=== PATIENT | male | born 1990 | race Caucasian/White ===

== ENCOUNTER 2020-11-02 06:22 | Emergency (ER) | payer SELFPAY ==
[2020-11-02] MEDS ORDERED: Fluorescein 1 MG Ophth Strip EYEBOTH ONE (06:38)
--- NOTE | 2020-11-02 06:38 | EDM.PDOC ---
<BennierosemarthaEmmanuel A - Last Filed: 11/02/20 07:55> ED HPI GENERAL MEDICAL PROBLEM - General Chief Complaint: Eye Problems Stated Complaint: METHANOL BLEW IN EYES Time Seen by Provider: 11/02/20 07:00 Source of Information: Reports: Patient History Limitations: Reports: No Limitations - Related Data Allergies Allergy/AdvReac Type Severity Reaction Status Date / Time No Known Allergies Allergy Verified 11/02/20 06:41 Home Meds: Home Meds . [No Known Home Meds] 11/02/20 [History] ED ROS GENERAL - Review of Systems Review Of Systems: Comprehensive ROS is negative, except as noted in HPI. ED EXAM GENERAL W FULL EYE - Physical Exam Exam: See Below Exam Limited By: No Limitations General Appearance: Alert, WD/WN, No Apparent Distress Eye Exam: Bilateral Eye: EOMI, PERRL Conjunctiva & Sclera: Bilateral: Injected, Scleral Icterus Throat/Mouth: Normal Voice, No Airway Compromise Head: Atraumatic, Normocephalic Neck: Normal Inspection Respiratory/Chest: No Respiratory Distress, No Accessory Muscle Use Cardiovascular: Normal Peripheral Pulses Extremities: Normal Inspection Neurological: Alert, Normal Gait Psychiatric: Normal Affect, Normal Mood Skin Exam: Warm, Dry, Intact, Normal Color Comments: On fluorescein exam patient is noted to have a large corneal abrasion overlying the left pupil and cornea. He has conjunctival erythema and irritation in bilateral eyes with watery discharge Course - Re-Assessments/Exams Free Text/Narrative Re-Assessment/Exam: 11/02/20 07:32 On fluorescein stain, large corneal abrasion overlying L pupil/corneal. Right eye appears ok. Normal EOMI. PERRLA. I'm having patient rinse his eyes again x15-min after tetracaine application, and I will arrange for f/u in ophthalmology office this morning. 11/02/20 07:[address] Marshall ophthalmology his nurse who states that he will be able to see patient around 2 PM this afternoon. He is unfortunately in surgery all morning. She recommends erythromycin ointment until patient is able to follow- up this afternoon. Departure - Departure Time of Disposition: 07:56 Disposition: Home, Self-Care 01 Condition: Good Clinical Impression: Chemical conjunctivitis of both eyes Corneal abrasion Qualifiers: Encounter type: initial encounter Laterality: left Qualified Code(s): S05.02XA - Injury of conjunctiva and corneal abrasion without foreign body, left eye, initial encounter - Discharge Information Instructions: Chemical Conjunctivitis, Adult, [id number] Referrals: PCP,None [Primary Care Provider] - Forms: ED Department Discharge Additional Instructions: Your eye exam reveals evidence of a large corneal abrasion in your left eye overlying your pupil. Your right eye appears okay. You are likely also experiencing chemical conjunctivitis in both of your eyes from the methanol. It is my recommendation that you follow-up with an eye doctor this afternoon. He's unfortunately in surgery this morning but can see you at 2PM. Information is provided below: Ophthalmology (eye doctor) Dr. Merlin Marshall [address] [place] [address] The following information is given to patients seen in the emergency department who are being discharged to home. This information is to outline your options for follow-up care. We provide all patients seen in our emergency department with a follow-up referral. The need for follow-up, as well as the timing and circumstances, are variable depending upon the specifics of your emergency department visit. If you don't have a primary care physician on staff, we will provide you with a referral. We always advise you to contact your personal physician following an emergency department visit to inform them of the circumstance of the visit and for follow-up with them and/or the need for any referrals to a consulting specialist. The emergency department will also refer you to a specialist when appropriate. This referral assures that you have the opportunity for follow-up care with a specialist. All of these measure are taken in an effort to provide you with optimal care, which includes your follow-up. Under all circumstances we always encourage you to contact your private physician who remains a resource for coordinating your care. When calling for follow-up care, please make the office aware that this follow-up is from your recent emergency room visit. If for any reason you are refused follow-up, please contact the [facility] Emergency Department at and asked to speak to the emergency department charge nurse. Please follow up with your primary care physician. If you do not have a primary care physician, see below: [facility] [address] [place] [address] [id number] [place] [address] [facility] [address] [place] [address] <PiyushRomel - Last Filed: 11/03/20 06:18> ED HPI GENERAL MEDICAL PROBLEM - History of Present Illness INITIAL COMMENTS - FREE TEXT/NARRATIVE: CHIEF COMPLAINT(S): Methanol eye exposure HISTORY OF PRESENT ILLNESS: This is a 30-year-old man and without any significant past medical history who comes to the emergency department with a chief complaint of methanol exposure. The patient states that approximately 50 minutes prior to arrival he accidentally misted his eyes with methanol by accident. He states that it went all over his close. He states that he is currently experiencing burning in his eyes. He denies any blurry vision, double vision. He denies any vision loss. He did not take any methanol by mouth. He denies any other symptoms such as headache, dizziness, abdominal pain, nausea or vomiting. REVIEW OF SYSTEMS: Constitutional: Denies fever, chills. Eyes: Positive for eye pain Ears, Nose, Mouth, & Throat: Denies earache Cardiovascular: Denies chest pain Respiratory: Denies shortness of breath Gastrointestinal: Denies Nausea, vomiting, diarrhea, hematochezia. Genitourinary: Denies hematuria Skin:Denies a rash Neurological: Denies blurred vision Psychiatric: Denies depression PAST MEDICAL HISTORY: As per history of present illness and as reviewed below otherwise noncontributory. SURGICAL HISTORY: As per history of present illness and as reviewed below otherwise noncontributory. SOCIAL HISTORY: As per history of present illness and as reviewed below otherwise noncontributory. FAMILY HISTORY: As per history of present illness and as reviewed below otherwise noncontributory. MEDICAL DECISION MAKING AND COURSE IN THE ED WITH INTERPRETATION/REVIEW OF DIAGNOSTIC STUDIES: This is a 30-year-old man and without any significant past medical history who comes to the emergency department with methanol exposure to the eye. At this time we did not immediately evaluate the patient's eyes. We did instruct the patient to flush his eyes for approximately 15 minutes with cold water. We will also decontaminate by changing the patient's close as he does smell of methanol. DISPOSITION: Patient was signed out to oncoming day team physician pending evaluation CONDITION: Fair PROCEDURES: None FINAL IMPRESSION(S)/DIAGNOSES: Acute methanol exposure to eye Romel Pickett M.D. Bilateral Eye Pain Score (Numeric/FACES): 10 Course - Vital Signs Last Recorded V/S: Last Vital Signs Temp 36.6 C 11/02/20 06:58 Pulse 71 11/02/20 08:11 Resp 20 11/02/20 06:58 BP 124/70 11/02/20 08:11 Pulse Ox 98 11/02/20 08:11 - Orders/Labs/Meds Meds: Medications Discontinued Medications Generic Name Dose Route Start Last Admin Trade Name Aarti PRN Reason Stop Dose Admin Erythromycin 1 gm 11/02/20 07:55 11/02/20 08:07 Erythromycin 0.5% Ophth Oint EYEBOTH 11/02/20 07:56 1 gm ONETIME ONE Administration Fluorescein Sodium 1 mg 11/02/20 06:38 11/02/20 07:13 Ful-Charis EYEBOTH 11/02/20 06:39 1 mg ONETIME ONE Administration Tetracaine HCl 10 ml 11/02/20 07:16 11/02/20 07:25 Tetracaine 0.5% Steri-Unit Sabine EYEBOTH 11/02/20 07:17 4 drop ASDIRECTED ONE Administration
[2020-11-02] MEDS ORDERED: Tetracaine HCl/PF 0.5% 4 ML Bottle EYEBOTH ONE (07:16)
[2020-11-02] MEDS ORDERED: Erythromycin Base 0.5% Ophth Oint 1 GM Tube EYEBOTH ONE (07:55)
== END 2020-11-02 08:12 | disposition home or self-care (01) ==
LOC: MW.ED 06:22
DX: S05.02XA Injury of conjunctiva and corneal abrasion without foreign body, left eye, initial encounter (principal); H10.213 Acute toxic conjunctivitis, bilateral; Z77.29 Contact with and (suspected) exposure to other hazardous substances; X58.XXXA Exposure to other specified factors, initial encounter
CPT/HCPCS: 99283; A9270